=== PATIENT | male | born 1985 | race Caucasian/White ===

== ENCOUNTER 2020-04-27 08:46 | Emergency (ER) | payer SELFPAY ==
[2020-04-27 08:47] VITALS: BP 156/93; PULSE 61; RESP 16; TEMP 35.6; O2SAT 100; BMI 42.2
[2020-04-27 08:52] VITALS: BP 156/93; PULSE 61; RESP 12; TEMP 35.6; O2SAT 100
--- NOTE | 2020-04-27 08:58 | VDLE_ITS ---
Reason For Study: swelling Procedure LEFT This is a venous duplex using B-mode, color GSV is normal. flow and spectral Doppler. CFV is compressible, spontaneous, phasic, Exam performed portable in ED. competent, and demonstrates normal The exam was abbreviated due to the COVID 19 augmentation. protocol. FV is compressible, spontaneous, phasic, The exam was diagnostic. competent and demonstrates normal A preliminary report was called and/or faxed augmentation. to Dr. Greer. POP V is compressible, spontaneous, phasic, competent and demonstrates normal augmentation. T/P Trunk is compressible. PTV is compressible. LT PerV is compressible. Interpretation Summary There is no evidence of left lower extremity deep vein thrombosis. Left great saphenous vein appears patent and compressible segmentally. COVID-19 protocol Ordering Physician: Masood Greer Performed By: Fili Carrillo RVT
--- NOTE | 2020-04-27 09:03 | ED.DCSUM_ITS ---
History of Present Illness Chief Complaint: Cellulitis Informant: Patient Onset: Days Context: Sudden Onset Timing: Continuous Quality: Tightness left leg and discoloration Location: Left leg Current Severity: Moderate Maximum Severity: Severe Worsened by: Walking Relieved by: Nothing Associated Symptoms: Swelling lower extremities, unable to tie shoes Narrative: 35-year-old male who presents with left leg pain and swelling. Patient is conc erned he has cellulitis. He is taken 4 doses of Bactrim which he had from prior prescription. He denies fever, chills night sweats. He does report history of congestive heart failure. Denies increased orthopnea and denies PND. Nuys chest discomfort. Denies pleuritic discomfort. He denies history of PE or DVT. He states he is not as mobile. His biggest concern is the tight sensation in the left leg more so than right and the fact that he cannot tie his shoe and is having difficulty putting his foot in his shoe. He states symptoms started . He denies headache, visual, ocular auditory symptoms. He denies GI symptoms. He denies symptoms. He is not on an anticoagulant. There is no history of trauma. Prior similar symptoms: Yes - Due to cellulitis Recent Illness/Hospitalization: No - Past Medical History (1) History of congestive heart failure Status: Acute (2) History of obstructive sleep apnea Status: Acute (3) History of hypertension Status: Acute (4) History of cellulitis Status: Acute Past Medical History - Allergies and Home Meds Allergies/Adverse Reactions: Allergies Penicillins Allergy (Verified 04/27/20 08:49) Anaphylaxis Primary Care Physician: Care Physician,No Primary [Primary Care Provider] - Prior records reviewed: Yes Surgical History: noncontributory Lives: Spouse/ Significant Other Smoking Status: Current every day smoker Alcohol: Rare Drugs: None - Patient former IV drug user. He has not used in several years. Review of Systems General: Denies: Chills, Fever, Malaise, Subjective, Sweats, Weight loss Eyes: Denies: Visual changes - bilaterally, Blurred Vision - bilaterally ENT: Denies: Rhinorrhea, Sore throat Cardiovascular: Denies: Chest pain, Palpitations Respiratory: Reports: Dyspnea, Dyspnea on exertion. Denies: Cough, Sputum, Orthopnea, Paroxysmal nocturnal dyspnea Gastrointestinal: Denies: Abdominal pain, Nausea, Vomiting, Diarrhea, Melena, Hematochezia Genitourinary: Denies: Dysuria, Hematuria, Frequency Musculoskeletal: Reports: Swelling, Extremity Pain. Denies: Myalgias, Arthralgias, Neck pain, Back pain Skin: Reports: Rash. Denies: Wounds Neurological: Denies: Headache, Weakness, Parasthesia Hematologic: Denies: Easy bruising, Easy bleeding Physical Exam Vital Signs/Narrative: Vital Signs Temp Pulse Resp BP Pulse Ox 04/27/20 08:52 96.1 F L 61 12 156/93 H 100 04/27/20 08:47 96.1 F L 61 16 156/93 H 100 Inital Vital Signs reviewed: Yes General: Well nourished, Well developed, Obese, No Acute Distress Head: Normocephalic, Atraumatic Eyes: Perrl, EOMI. Negative for: Pale conjunctiva, Scleral icterus ENT: Moist mucous membranes, No rhinorrhea Neck: Supple, Nontender, No lymphadenopathy, No JVD Cardiovascular: Regular rate, Regular rhythm, No murmurs, Normal S1, Normal S2 Respiratory: No distress, CTA bilaterally, Chest nontender Abdomen: Soft, Nontender, Nondistended, Normal bowel sounds Back: Negative for: Nontender, Normal Inspection Extremities: Tenderness, Edema, - - There is significant swelling of the left lower extremity compared to the right. There is pain outpatient along the distribution of the deep venous system. Skin: Normal color, Rash - Has an erythematous blotchy nonblanching rash left leg greater than right. There is no petechia. Neurological: Alert, Oriented x3, Cranial nerves II-XII grossly intact, Normal Strength, Normal Sensation, Normal Gait Psychological: Normal affect Diagnostic/Tx/Re-eval Laboratory Results 04/27/20 04/27/20 04/27/20 09:45 09:45 09:45 WBC 7.1 RBC 5.61 Hgb 15.5 Hct 49.1 MCV 87.5 MCH 27.6 MCHC 31.6 L RDW Std Deviation 42.5 RDW Coeff of Emperatriz 13.2 Plt Count 245 MPV 8.9 Immature Gran % (Auto) 0.100 Neut % (Auto) 50.7 Lymph % (Auto) 37.3 Alexander % (Auto) 9.4 Eos % (Auto) 2.1 Baso % (Auto) 0.4 Absolute Neuts (auto) 3.6 Absolute Lymphs (auto) 2.66 Nucleated RBC % 0 D-Dimer Quant (PE/DVT) Cancelled Sodium 138 Potassium 4.3 Chloride 108 H Carbon Dioxide 26.0 Anion Gap 4 L BUN 12 Creatinine 0.71 Estim Creat Clear Calc 160.99 Est GFR (MDRD) Af Amer 160 Est GFR (MDRD) Non-Af 132 BUN/Creatinine Ratio 16.9 Glucose 92 Calcium 8.5 I was informed by patient's nurse that the D-dimer was hemolyzed and lab was unable to run. Lab presented to draw blood and patient refused. Lactate clotted prior to running. Since patient vitals are normal white count is normal lactate was canceled. Since patient's venous duplex study was negative the D- dimer was canceled. This may represent a partially treated cellulitis and took 4 doses of Bactrim. He reports that the leg looks better than it did a couple days ago. Will discharge with prescription for doxycycline since patient is allergic to penicillin. Furthermore patient was instructed to follow-up with his doctor for CPAP fitting. - Medical Decision Making Patient is well score is 2. A venous duplex study was obtained to rule out DVT. There clinically is no evidence of cellulitis. CBC was obtained to assess white count and H&H. Electrolyte panel was obtained in the event a CT is required and to rule out renal failure as a cause of his edema. Venous duplex study was performed and is negative for DVT. ED Disposition - Plan for ED Patient: Disposition: Home or Assisted Living Diagnosis: Cellulitis of left lower extremity, Lymphedema Instructions: ED Cellulitis, ED Peripheral Edema, Bilateral Prescriptions: Doxycycline 100 mg PO BID #14 cap Transmission Status: Pending to [facility] Oxycodone [Oxyir] 5 mg PO Q6H PRN PRN 3 Days #10 tablet PRN Reason: Leg pain Transmission Status: Sent to [facility] Referrals: Care Physician,No Primary [Primary Care Provider] - Doctor,Your [STAFF PHYSICIAN] - Keep Karley appointment
[2020-04-27 09:56] LABS: Absolute Lymphocyte Count 2.66 X10^3/uL (0.83-4.51); Absolute Neutrophil Count 3.6 X10^3/uL (2.0-7.7); Basophil# 0.03 X10^3/uL; Basophil% 0.4 % (0-1); Eosinophil# 0.15 X10^3/uL; Eosinophils% 2.1 % (0-5); Hematocrit 49.1 % (40-54); Hemoglobin 15.5 g/dL (13.0-16.5); Lymphocyte # 2.66 X10^3/ul (4.0); Lymphocyte % 37.3 % (19-41); Mean Corp Hgb Conc 31.6 g/dL (32-36); Mean Corpuscular Hgb 27.6 pg (27.0-32.0); Mean Corpuscular Volume 87.5 fL (80-94); Mean Platelet Vol. 8.9 fl (6.2-12.0); Monocyte# 0.67 X10^3/uL; Monocyte% 9.4 % (0-10); NRBC Flagged by Analyzer 0 % (0-5); Neutrophil # 3.62 X10^3/uL (2.7-7.7); Neutrophil % 50.7 % (47-70); Platelet Count 245 K/mm3 (150-450); RBC Distribution Width CV 13.2 % (11.6-14.6); RBC Distribution Width SD 42.5 fl (35.1-43.9); Red Blood Count 5.61 M/mm3 (4.6-6.2); White Blood Count 7.1 K/mm3 (4.4-11.0)
[2020-04-27 10:07] LABS: Anion Gap 4 (5-15); BUN 12 mg/dL (7-18); BUN/Creat Ratio 16.9 RATIO (10-20); Calcium,Total 8.5 mg/dL (8.5-10.1); Chloride 108 mmol/L (98-107); Creatinine, Serum 0.71 mg/dL (0.70-1.30); EST Glomerular Filtration Rate 132 mL/min (>60); Est Glom Filt Rate - Afr Amer 160 mL/min (>60); Estimated Creatinine Clearance 160.99 ml/min; Glucose 92 mg/dL (74-106); Potassium 4.3 mmol/L (3.5-5.1); Sodium Level 138 mmol/L (136-145)
[2020-04-27] MEDS: oxyCODONE 5 MG Tablet PO (10:42)
[2020-04-27] MEDS: Doxycycline 100 MG CAPSULE PO (10:42)
== END 2020-04-27 10:48 | disposition home or self-care (01) ==
PROVIDERS: Emergency Provider Emergency Medicine
DX: L03.116 Cellulitis of left lower limb (principal); I89.0 Lymphedema, not elsewhere classified; E66.9 Obesity, unspecified; I50.9 Heart failure, unspecified; F17.200 Nicotine dependence, unspecified, uncomplicated
CPT/HCPCS: 80048; 85025; 93971; 99285; A4216

== ENCOUNTER 2020-05-17 12:52 | Emergency (ER) | payer SELFPAY ==
[2020-05-17 12:54] VITALS: BP 152/80; PULSE 68; RESP 18; TEMP 36.8; O2SAT 100; BMI 45.6
--- NOTE | 2020-05-17 13:15 | EKG12_ITS ---
Test Reason : CELLULITIS Blood Pressure : / mmHG Vent. Rate : 057 BPM Atrial Rate : 057 BPM P-R Int : 162 ms QRS Dur : 088 ms QT Int : 456 ms P-R-T Axes : 050 013 030 degrees QTc Int : 443 ms Sinus bradycardia Otherwise normal ECG Confirmed by ABDULLAHI LIZAMA, AXEL ([id number]), features editor MELCHOR RODRIGUEZ ([id number]) on 05/20/2020 12:27:32 PM Referred By: LAYO Confirmed By:CAITY FERNANDO MD
[2020-05-17] MEDS: oxyCODONE 5 MG Tablet 10 MG PO (13:31)
[2020-05-17] MEDS: Doxycycline 100 MG CAPSULE PO (13:31)
[2020-05-17 13:49] VITALS: BP 149/88; PULSE 60; RESP 12; O2SAT 97
[2020-05-17 13:56] LABS: Absolute Lymphocyte Count 3.05 X10^3/uL (0.83-4.51); Absolute Neutrophil Count 3.6 X10^3/uL (2.0-7.7); Basophil# 0.02 X10^3/uL; Basophil% 0.3 % (0-1); Eosinophil# 0.17 X10^3/uL; Eosinophils% 2.2 % (0-5); Hematocrit 46.3 % (40-54); Hemoglobin 14.9 g/dL (13.0-16.5); Lymphocyte # 3.05 X10^3/ul (4.0); Lymphocyte % 40.2 % (19-41); Mean Corp Hgb Conc 32.2 g/dL (32-36); Mean Corpuscular Hgb 28.6 pg (27.0-32.0); Mean Corpuscular Volume 88.9 fL (80-94); Mean Platelet Vol. 9.1 fl (6.2-12.0); Monocyte# 0.68 X10^3/uL; NRBC Flagged by Analyzer 0 % (0-5); Neutrophil # 3.63 X10^3/uL (2.7-7.7); Neutrophil % 47.9 % (47-70); Platelet Count 224 K/mm3 (150-450); RBC Distribution Width CV 13.4 % (11.6-14.6); RBC Distribution Width SD 43.7 fl (35.1-43.9); Red Blood Count 5.21 M/mm3 (4.6-6.2); White Blood Count 7.6 K/mm3 (4.4-11.0)
--- NOTE | 2020-05-17 14:10 | CM.ED ---
SOCIAL WORK Referral Source: Dr. Jones Reason for Consult: Resources Met with patient in room. Introduced role and reason for referral. Patient is self-pay. Patient states is over income for Medicaid. Patient states has been to doctors in the past and is aware he needs a CPAP. Patient states unable to afford CPAP. Education and resources provided. Patient states I don't really have a primary care doctor. I don't like going to the doctor. Support provided. Patient provided with resources and encouraged to follow up. All questions answered. Plan: Mikel Estes MSW, [employer]
[2020-05-17 14:15] LABS: ALB/GLOB Ratio 0.8 RATIO (0.9-2.4); AST(SGOT) 38 U/L (15-37); Alanine Aminotransfer ALT/SGPT 59 U/L (16-61); Albumin, Serum 3.4 g/dL (3.2-5.0); Alkaline Phosphatase 139 U/L (45-117); Anion Gap 5 (5-15); BUN 12 mg/dL (7-18); BUN/Creat Ratio 17.3 RATIO (10-20); Calcium,Total 8.5 mg/dL (8.5-10.1); Chloride 106 mmol/L (98-107); Creatinine, Serum 0.69 mg/dL (0.70-1.30); EST Glomerular Filtration Rate 136 mL/min (>60); Est Glom Filt Rate - Afr Amer 165 mL/min (>60); Estimated Creatinine Clearance 165.65 ml/min; Globulin 4.1 g/dL (2.2-4.2); Glucose 90 mg/dL (74-106); Potassium 4.5 mmol/L (3.5-5.1); Protein, Total 7.5 g/dL (6.4-8.2); Sodium Level 138 mmol/L (136-145)
[2020-05-17 14:16] LABS: BNP,B-Type NATRIURETIC PEPTIDE 38.8 pg/mL (0-100)
--- NOTE | 2020-05-17 14:49 | ED.DCSUM_ITS ---
- ER Visit Summary Date of Service: 05/17/20 Chief Complaint: Bilateral leg swelling History of Present Illness: The patient is a 35 M with no primary care physician. He reports he has bilateral leg swelling that began yesterday. He states that he has had this multiple times in the past. He reports that this is similar to what happens prior to him getting cellulitis. Patient complains of an aching pain that is 6 out of 10 currently 10 out of 10 at worst. Is worsened by walking. Is relieved by rest. He denies any numbness or weakness. He denies any chest pain or shortness of breath. Physical Examination: Vitals: Stable. Afebrile. General: Well-nourished and well-developed. Head: Normocephalic atraumatic. Neck: Supple, no lymphadenopathy. No JVD. Nontender. Cardiovascular: Regular rate and rhythm. No murmurs. Respiratory: No respiratory distress. Clear to auscultation bilaterally. Abdominal: Soft, nontender, nondistended, normal bowel sounds. No guarding, rebound, or peritoneal signs. Back: Nontender. Extremities: Nontender, 2+ pitting edema lower extremities bilaterally. 2+ dorsalis pedis pulse bilaterally. No erythema or warmth. No induration or fluctuance. Skin: Normal color, no rash. Neurologic: Alert and oriented ?3. Cranial nerves II through XII are intact. Normal strength and sensation. Psych: Normal affect. Test Results: EKG sinus bradycardia 57 no acute changes. Opponent is negative. BNP is normal. LFTs show an AST of 38. Alk phos is 139. Chem-7 shows a creatinine 0.69. CBC is normal. Emergency Department Course and Treatment: Patient was given a dose of oxycodone and doxycycline p.o. I had a prolonged discussion with the recurrent peripheral edema that I suspect that he has sleep apnea and requires CPAP. He does report that he knows that he has this, but is unable to afford CPAP. He was seen by case management to talk with him about community resources. Treatment Plan: Patient be discharged with Lasix, oxycodone, and doxycycline. Instructed to follow-up the [facility] in 3 to 5 days for another exam. Return to the emergency department for any worsening symptoms. Disposition: To home in improved and stable condition. Impression: 1. Peripheral edema. This note was generated with Dragon dictation software. It may contain incorrect words, spelling, and punctuation that were not noted in review of the chart prior to signing ED Disposition - Plan for ED Patient: Disposition: Home or Assisted Living Instructions: ED Peripheral Edema, Bilateral Prescriptions: Doxycycline 100 mg PO BID #14 capsule Prescription Printed Furosemide [Lasix] 20 mg PO DAILY #7 tablet Prescription Printed Oxycodone [Oxyir] 5 mg PO Q6H PRN PRN #12 tab PRN Reason: Pain Score 6-10 Prescription Printed Referrals: Lila Frost [NON-STAFF] - 3-5 Days
[2020-05-17 15:34] VITALS: PULSE 89; RESP 16
== END 2020-05-17 15:35 | disposition home or self-care (01) ==
LOC: ED 13:31
PROVIDERS: Emergency Provider Emergency Medicine
DX: R60.0 Localized edema (principal); I50.9 Heart failure, unspecified; Z87.2 Personal history of diseases of the skin and subcutaneous tissue; F17.200 Nicotine dependence, unspecified, uncomplicated
CPT/HCPCS: 80053; 83880; 84484; 85025; 93005; 99283; A4216